=== PATIENT | female | born 1955 | race Caucasian/White ===

== ENCOUNTER 2016-06-25 17:01 | Observation (INO) | payer BC ==
[~2016-06-25] VITALS: Ht 172.7 cm; Wt 69.8 kg
[2016-06-25] MEDS ORDERED: ONDANSETRON 4 MG VIAL ONE (19:16)
[2016-06-25] MEDS ORDERED: KCL CR 20 MEQ TAB PO ONE ×2 (19:16→19:50)
[2016-06-25] MEDS ORDERED: SODIUM CHLORIDE 0.9% 1,000 ML ONE ×2 (19:16→21:01)
[2016-06-25] MEDS ORDERED: ONDANSETRON 4 MG VIAL IV PRN (20:50)
[2016-06-25] MEDS ORDERED: SALINE FLUSH 10 ML FLUSH PRN (20:50)
[2016-06-25] MEDS ORDERED: BISACODYL EC 5 MG TAB PO PRN (20:50)
[2016-06-25] MEDS ORDERED: SODIUM CHLORIDE 0.9% 1,000 ML IV SCH (20:50)
[2016-06-25] MEDS ORDERED: BISACODYL 10 MG SUPP RECTAL PRN (20:50)
[2016-06-25] MEDS ORDERED: MAG HYDROX 30 ML UDC PO PRN (20:50)
[2016-06-25] MEDS ORDERED: MORPHINE 4 MG/ML SYR IV PRN (20:50)
[2016-06-25] MEDS ORDERED: ACETAMINOPHEN 325 MG TAB PO PRN (20:50)
[2016-06-25] MEDS ORDERED: ALU/MAG/SIM 30 ML UDC PO PRN (20:50)
[2016-06-25] MEDS ORDERED: MORPHINE 2 MG/ML SYR IV PRN (20:50)
[2016-06-25] MEDS ORDERED: LEVOFLOXACIN 500 MG INJ IV ONE (21:00)
[2016-06-25] MEDS: BUSPIRONE HCL 15 MG TAB PO SCH (21:00)
[2016-06-25] MEDS ORDERED: ED METRONIDAZOLE IV 100 ML IV ONE (21:00)
[2016-06-25] MEDS ORDERED: LORAZEPAM 2 MG/ML VIAL ONE (21:12)
[2016-06-25] MEDS ORDERED: SODIUM CHLOR 0.9% W/KCL 20MEQ 1,000 ML IV SCH (21:20)
[2016-06-25] MEDS ORDERED: MORPHINE 2 MG/ML SYR ONE (21:26)
[2016-06-25 22:08] VITALS: BP_SYST 142; RESP 20; TEMP 99.3
[2016-06-25 22:35] VITALS: BMI 23.4
[2016-06-26 03:00] VITALS: BP_SYST 124; RESP 18; TEMP 99.4
[2016-06-26] MEDS: METRONIDAZOLE 500MG/100ML 100 ML IV SCH ×4 (04:02→17:34)
[2016-06-26] MEDS: LORAZEPAM 2 MG/ML VIAL IV PRN ×2 (04:25→12:26)
[2016-06-26] MEDS ORDERED: SODIUM CHLORIDE 0.9% FLUSH BAG 500 ML IV SCH ×2 (06:00)
[2016-06-26 07:21] VITALS: BP_SYST 110; RESP 20; TEMP 98.9
[2016-06-26] MEDS ORDERED: SALINE FLUSH 10 ML FLUSH SCH (08:00)
[2016-06-26] MEDS: BUSPIRONE HCL 15 MG TAB PO SCH (08:14)
[2016-06-26] MEDS ORDERED: FLUOXETINE 20 MG CAP PO SCH (09:00)
[2016-06-26] MEDS ORDERED: LORATADINE 10 MG TAB PO SCH (09:00)
[2016-06-26] MEDS ORDERED: LEVOFLOXACIN 750 MG/150 ML 150 ML IV SCH (09:00)
[2016-06-26] MEDS ORDERED: FLUTICASONE 0.05% NA BTL NARE EACH SCH (09:00)
[2016-06-26] MEDS ORDERED: ENOXAPARIN 40 MG/0.4 ML SYR SUBQ SCH (09:00)
[2016-06-26 09:27] VITALS: Ht 172.7 cm; Wt 69.8 kg
[2016-06-26 11:43] VITALS: BP_SYST 120; RESP 12; TEMP 98.1
[2016-06-26 15:53] VITALS: BP_SYST 120; RESP 24; TEMP 98.1
[2016-06-26 18:01] VITALS: BP_SYST 120; RESP 24; TEMP 98.1
== END 2016-06-26 16:59 | disposition home or self-care (01) ==
LOC: ENRESERV → ENRESERVDT → ENRESERVTM → ER 17:01 → ENPENDDIS 20:46 → EMR 20:46 → 3NT 22:31
PROVIDERS: ADMIT Internal Medicine; ATTEND Internal Medicine
CPT/HCPCS: 74020; 80048; 80053; 81001; 83630; 83690; 85025; 87045; 87046; 87088; 87493; 94799; 96361; 96365; 96375; 99217; 99233